=== PATIENT | male | born 1960 | race Caucasian/White ===

== ENCOUNTER 2017-06-03 16:24 | Emergency (ER) | payer OTHER ==
[~2017-06-03] VITALS: Ht 170.2 cm; Wt 75.0 kg
[2017-06-03 16:26] VITALS: BP 150/86; PULSE 97; RESP 16; TEMP 98.3; O2SAT 98
[2017-06-03 16:34] VITALS: BP 136/91; PULSE 86; RESP 16; O2SAT 96
--- NOTE | 2017-06-03 17:06 | PD ---
HPI Chief Complaint: Injury Time Seen by Provider: 16:30 Travel History International Travel<30 days: No Contact w/Intl Traveler<30days: No Traveled to known affect area: No History of Present Illness HPI 57-year-old male presents emergency department for evaluation of laceration to his right hand. Patient reports he he cut his hand with a kitchen knife accidentally. Patient reports he is unable to flex his fourth and fifth digit. He reports normal sensation. Tetanus immunization up-to-date. PFSH Past Medical History Anxiety: Yes Diabetes: Yes Patient Takes Glucophage: Yes (today) Hypertension: Yes Medical other: Yes (PTSD) Tetanus Vaccination: < 5 Years Past Surgical History Other Surgery: Yes (neck fusion x 2) Social History Alcohol Use: Yes (today) Tobacco Use: No (10 yrs quit) Substance Use: Yes (marijuanna x 1 day medically) Allergies-Medications (Allergen,Severity, Reaction): Coded Allergies: Contrast Media (Verified Allergy, Intermediate, seizures, 06/03/17) Review of Systems Except as stated in HPI: all other systems reviewed are Neg General / Constitutional: No: Fever Eyes: No: Visual changes HENT: No: Headaches Cardiovascular: No: Chest Pain or Discomfort Respiratory: No: Shortness of Breath Gastrointestinal: No: Abdominal Pain Genitourinary: No: Dysuria Musculoskeletal: Positive: Other (laceration right hand) Physical Exam Narrative GENERAL: Well-nourished, well-developed patient. SKIN: Focused skin assessment warm/dry. HEAD: Normocephalic. EYES: No scleral icterus. No injection or drainage. NECK: Supple, trachea midline. No JVD or lymphadenopathy. CARDIOVASCULAR: Regular rate and rhythm without murmurs, gallops, or rubs. RESPIRATORY: Breath sounds equal bilaterally. No accessory muscle use. GASTROINTESTINAL: Abdomen soft, non-tender, nondistended. MUSCULOSKELETAL: No cyanosis, or edema. 5 cm laceration right palm. no tendon injury visualized. Patient is unable to flex his fourth and fifth digit. He reports normal sensation in those digits. Brisk capillary refill. BACK: Nontender without obvious deformity. No CVA tenderness. Data Data Last Documented VS Vital Signs Date Time Temp Pulse Resp B/P Pulse Ox O2 Delivery O2 Flow Rate FiO2 06/03/17 16:34 86 16 136/91 96 06/03/17 16:26 98.3 Orders Lidocaine 1% Inj (Xylocaine 1% Inj) (06/03/17 17:30) Lidocaine Pf 1% Inj (Xylocaine-Mpf 1% In (06/03/17 17:41) Splinting (06/03/17 ) MDM Medical Decision Making Medical Screen Exam Complete: Yes Emergency Medical Condition: Yes Differential Diagnosis Tendon laceration, hand laceration Narrative Course 57-year-old male presents emergency department for evaluation of right hand laceration caused by kitchen knife. On examination patient is unable to flex his fourth and fifth digit. Tendon injury is suspected. The extremity is neurovascularly intact. I spoke with Dr. Brower land degradation analyst hand surgeon he recommends primary closure, splinting the hand in the short arm dorsal block splint, prophylactic antibiotics and having the patient follow up in his office this week. Laceration repaired. Patient tolerated procedure well. Please see procedure note. Wound care and splint precautions were discussed with patient. He verbalizes understanding and agrees to call to make follow-up plan with hand surgeon. Procedures Procedure Narrative LACERATION LOCATION: Right hand LENGTH: 5 cm NUMBER OF STITCHES/SHELLEY: [8] REPAIR: The area of the laceration was prepped with Betadine and sterilely draped. The laceration was infiltrated with [1% lidocaine]. The wound was copiously irrigated and explored without evidence of foreign body or neurovascular injury. The wound was closed using 4-0 Ethilon. This was a single layer repair. A sterile dressing was applied. The patient was advised to keep the dressing clean and dry. Patient tolerated the procedure well. Diagnosis Primary Impression: Hand laceration Qualified Code: S61.411A - Laceration of right hand without foreign body, initial encounter Additional Impression: Tendon laceration Referrals: Edgard Brower III, MD Additional Instructions: Do not remove the splint. Keep the splint in place until follow-up with the hand surgeon. Take the antibiotics as prescribed. Ice and elevate the extremity. Return to the emergency department if he develop new or worsening symptoms. Scripts Cephalexin (Keflex)500 Mg [id number] Mg PO Q6H #28 CAP Prov:Sara Mcgregor 06/03/17 Disposition: 01 DISCHARGE HOME Condition: Stable Sara Mcgregor Jun 03, 2017 17:06
[2017-06-03] MEDS ORDERED: LIDOCAINE HCL 1% 30 ML VIAL INFIL ONE (17:30)
[2017-06-03] MEDS ORDERED: LIDOCAINE HCL 1% PF 30 ML VIAL ONE (17:41)
[2017-06-03] MEDS ORDERED: CEPH-460 PO (19:06)
== END 2017-06-03 19:20 | disposition home or self-care (01) ==
LOC: NEPD 16:24
DX: S61.411A Laceration without foreign body of right hand, initial encounter (principal); E11.9 Type 2 diabetes mellitus without complications; I10 Essential (primary) hypertension; F43.10 Post-traumatic stress disorder, unspecified; W26.0XXA Contact with knife, initial encounter; Y93.89 Activity, other specified; Y92.9 Unspecified place or not applicable
CPT/HCPCS: 12002